=== PATIENT | male | born 1955 | race Caucasian/White ===

== ENCOUNTER 2017-08-24 17:09 | Inpatient (IN) | payer OTHER ==
[~2017-08-24] VITALS: Ht 154.9 cm; Wt 65.8 kg
[~2017-08-24 17:09] MED LIST: AMLO-511 PO; LEVO100 PO; LOSA50TA37 PO; METO50 PO
[2017-08-24 17:30] LABS: BASOPHILS # (AUTO) 0.08 K/uL (0.00-0.20); EOSINOPHILS # (AUTO) 0.02 K/uL (0.00-0.70); EOSINOPHILS % (AUTO) 0.29 % (1.0-6.0); HEMATOCRIT 47.1 % (41-53); HEMOGLOBIN 16.1 g/dL (13.5-17.5); LYMPHOCYTES # (AUTO) 3.4 K/uL (1.0-4.8); LYMPHOCYTES % (AUTO) 42.5 % (22.0-44.0); MEAN CORPUSCULAR HEMOGLOBIN 33.9 pg (26.0-34.0); MEAN CORPUSCULAR HGB CONC 34.1 G/dL (31.0-37.0); MEAN CORPUSCULAR VOLUME 100 fL (80-100); MONOCYTES # (AUTO) 0.7 K/uL (0.1-1.0); MONOCYTES % (AUTO) 8.5 % (2.0-9.0); NEUTROPHILS # (AUTO) 3.9 K/uL (1.8-7.7); NEUTROPHILS % (AUTO) 47.7 % (40.0-70.0); PLATELET COUNT (AUTO) 102 K/uL (150-450); RED BLOOD CELL COUNT(AUTO) 4.74 MIL/uL (4.50-5.90); RED CELL DISTRIBUTION WIDTH 14.4 % (11.5-14.5)
[2017-08-24 17:45] LABS: ALBUMIN 3.2 g/dL (3.4-5.0); BILIRUBIN,TOTAL 1.2 mg/dL (0.1-1.0); CALCIUM, TOTAL 8.1 mg/dL (8.8-10.5); CREATININE 1.26 mg/dL (0.60-1.30); POTASSIUM 3.4 mmol/L (3.5-5.1); TOTAL PROTEIN, SERUM 7.7 g/dL (6.4-8.2)
[2017-08-24] MEDS ORDERED: SODIUM CHLORIDE 0.9% 1,000 ML IV ONE ×2 (18:00→19:00)
[2017-08-24] MEDS ORDERED: ZOLPIDEM TARTRATE 10 MG TABLET PO PRN (18:00)
[2017-08-24] MEDS ORDERED: HALOPERIDOL 5 MG TABLET PO PRN (18:00)
[2017-08-24] MEDS ORDERED: LORazepam 2 MG TABLET PO PRN ×2 (18:00→18:15)
[2017-08-24] MEDS ORDERED: METOPROLOL TARTRATE 50 MG TABLET PO ONE (18:00)
[2017-08-24] MEDS ORDERED: CYANOCOBALAMIN 1,000 MCG/ML VIAL IM ONE (18:15)
[2017-08-24 18:20] LABS: THYROID STIMULATING HORMONE 6.99 uIU/mL (0.36-3.74)
[2017-08-24 19:53] LABS: AMPHET/METH SCREEN,URINE NEGATIVE (NEGATIVE); BARBITURATE SCREEN, URINE NEGATIVE (NEGATIVE); BENZODIAZEPINES SCREEN,URINE NEGATIVE (NEGATIVE); CANNABINOID SCREEN,URINE NEGATIVE (NEGATIVE); COCAINE SCREEN,URINE NEGATIVE (NEGATIVE); METHADONE SCREEN, URINE NEGATIVE (NEGATIVE); OPIATE SCREEN,URINE NEGATIVE (NEGATIVE)
[2017-08-24 19:55] LABS: PHENCYCLIDINE SCREEN,URINE NEGATIVE (NEGATIVE)
[2017-08-24 20:19] LABS: GLUCOSE,POINT OF CARE 296 MG/DL (70-110)
[2017-08-24] MEDS: THIAMINE HCL 100 MG TABLET PO SCH (20:30)
[2017-08-24] MEDS ORDERED: INSULIN ASPART 100 UNITS/ML SQ ONE (20:30)
[2017-08-24] MEDS ORDERED: MetFORMIN HCL 500 MG TABLET PO ONE (20:30)
[2017-08-24 23:59] LABS: GLUCOSE,POINT OF CARE 286 MG/DL (70-110)
[2017-08-25] MEDS ORDERED: POTASSIUM CHLORIDE 20 MEQ ER TABLET PO ONE (00:30)
[2017-08-25 00:45] VITALS: BP 152/107
[2017-08-25 01:45] VITALS: BP 125/80
[2017-08-25 02:45] VITALS: BP 126/79
[2017-08-25 03:45] VITALS: BP 124/81
[2017-08-25 04:45] VITALS: BP 148/101
[2017-08-25 06:06] LABS: GLUCOMETER DEV NAME(LOC) 3EI B; GLUCOSE,POINT OF CARE 249 MG/DL (70-110)
[2017-08-25 06:45] LABS: CHOL/HDL RATIO 3.5 (4.2-7.3); CHOLESTEROL 163 mg/dL (131-200); HDL CHOLESTEROL 46 mg/dL (40-60); TRIGLYCERIDES 567 mg/dL (15-150)
[2017-08-25] MEDS ORDERED: LORazepam 2 MG TABLET PO PRN (07:00)
[2017-08-25] MEDS ORDERED: FOLIC ACID 1 MG TABLET PO SCH (09:00)
[2017-08-25] MEDS: LORazepam 2 MG TABLET PO SCH ×2 (09:00→13:00)
[2017-08-25] MEDS ORDERED: MULTIVITAMINS WITH MINERALS, THERAPEUTIC TABLET PO SCH (09:00)
[2017-08-25] MEDS: THIAMINE HCL 100 MG TABLET PO SCH (10:21)
[2017-08-25 13:56] VITALS: BP 141/95
[2017-08-25] MEDS ORDERED: DEXTROSE 50%-WATER 25 GM/50 ML SYRINGE IVP PRN (14:15)
[2017-08-25] MEDS ORDERED: INSULIN ASPART 100 UNITS/ML SQ PRN (14:15)
[2017-08-27] MEDS ORDERED: LORazepam 1 MG TABLET PO PRN (07:00)
[2017-08-27] MEDS ORDERED: LORazepam 1 MG TABLET PO SCH (09:00)
[2017-08-28] MEDS ORDERED: LORazepam 1 MG TABLET PO PRN (07:00)
== END 2017-08-25 17:15 | disposition home or self-care (01) | DRG 881 ==
LOC: EMS 17:11 → 3EI 08-25 00:48
PROVIDERS: ADMIT Psychiatry & Neurology Psychiatry; ATTEND Psychiatry & Neurology Psychiatry
DX: F32.9 Major depressive disorder, single episode, unspecified (principal); R45.851 Suicidal ideations; E11.9 Type 2 diabetes mellitus without complications; E03.9 Hypothyroidism, unspecified; F10.129 Alcohol abuse with intoxication, unspecified; I10 Essential (primary) hypertension; F17.210 Nicotine dependence, cigarettes, uncomplicated; E78.5 Hyperlipidemia, unspecified
CPT/HCPCS: 82948; 82962; 83036; 84443; 93005; 96360; 96361; 96372; 99291; G0480; J3420; J7030

== ENCOUNTER 2025-06-07 11:30 | Inpatient (IN) | payer MEDICARE ==
[~2025-06-07] VITALS: Ht 160 cm; Wt 58.6 kg
[~2025-06-07 11:30] MED LIST changes: -AMLO-511 PO; -LEVO100 PO; -LOSA50TA37 PO; +METF-1211 PO; -METO50 PO; +SIMV5TAB58 PO; +TELM40TA8 PO
[2025-06-07 12:21] LABS: GLUCOMETER DEV NAME(LOC) ER.7; GLUCOSE,POINT OF CARE 259 MG/DL (70-110)
[2025-06-07 12:30] LABS: RED BLOOD CELL COUNT(AUTO) 3.61 MIL/uL (4.50-5.90); RED CELL DISTRIBUTION WIDTH 15.9 % (11.5-14.5); WHITE BLOOD COUNT (AUTO) 5.1 K/uL (4.5-11.0)
[2025-06-07 12:33] LABS: CALCIUM, TOTAL 8.8 mg/dL (8.8-10.5); CREATININE 1.16 mg/dL (0.60-1.30); GLOMERULAR FILTR. RATE CALC > 60 mL/min (>60); GLUCOSE,RANDOM 251 mg/dL (70-110); SODIUM SERUM 126 mmol/L (136-145); UREA NITROGEN, BLOOD 10 mg/dL (7-18)
[2025-06-07 12:39] LABS: ASPARTATE AMINOTRANSFERASE 352 U/L (15-37); TOTAL PROTEIN, SERUM 7.1 g/dL (6.4-8.2)
[2025-06-07 12:41] LABS: BAND NEUTROPHILS % (MANUAL) 0 % (0-5)
[2025-06-07 12:44] LABS: ALCOHOL, BLOOD (SERUM) < 3 mg/dL (0-10)
[2025-06-07 13:19] LABS: LYMPHOCYTES % (MANUAL) 30 % (22-44); MONOCYTES % (MANUAL) 6 % (2-9); SEGMENTED NEUTROPHILS % 64 % (40-70)
[2025-06-07 13:23] LABS: RBC MORPHOLOGY COMMENT ABNORMAL R
[2025-06-07 13:24] LABS: PLATELET COUNT (AUTO) 108 K/uL (150-450)
[2025-06-07] MEDS: MAGNESIUM SULFATE 2 GM, MVI, ADULT NO.1 WITH VIT K 10 ML, THIAMINE 100 MG, FOLIC ACID 1... IV ONE (13:33)
[2025-06-07 13:42] LABS: TROPONIN I-HIGH SENSITIVITY 9 ng/L (<76)
[2025-06-07 13:43] LABS: LACTIC ACID 1.1 mmol/L (0.4-2.0)
[2025-06-07 13:54] LABS: ALCOHOL, BLOOD (SERUM) < 3 mg/dL (0-10)
[2025-06-07 14:05] LABS: APPEARANCE,URINE HAZY (CLEAR); GLUCOSE, URINE (UA) 150-200 mg/dL (NEGATIVE); LEUKOCYTE ESTERASE ,URINE NEGATIVE (NEGATIVE); NITRATE,URINE NEGATIVE (NEGATIVE); OCCULT BLOOD,URINE NEGATIVE (NEGATIVE); SPECIFIC GRAVITIY, URINE 1.027 (1.003-1.030)
[2025-06-07 14:20] LABS: SQUAMOUS EPITHELIAL CELL,UR Few /LPF (None Seen)
[2025-06-07 14:21] LABS: PH,URINE DRUG SCREEN 7.0 (5.0-8.0)
[2025-06-07 14:30] LABS: ALCOHOL, URINE DRUG SCREEN NEGATIVE (NEGATIVE); AMPHET/METH SCREEN,URINE NEGATIVE (NEGATIVE); BARBITURATE SCREEN, URINE NEGATIVE (NEGATIVE); CANNABINOID SCREEN,URINE NEGATIVE (NEGATIVE); COCAINE SCREEN,URINE NEGATIVE (NEGATIVE); METHADONE SCREEN, URINE NEGATIVE (NEGATIVE)
[2025-06-07] MEDS ORDERED: MAGNESIUM SULFATE 2 GM/WATER 50 ML IV PRN (16:30)
[2025-06-07] MEDS ORDERED: ACETAMINOPHEN 325 MG TABLET PO PRN (16:30)
[2025-06-07] MEDS ORDERED: MAGNESIUM OXIDE 400 MG TABLET PO PRN (16:30)
[2025-06-07] MEDS ORDERED: BISACODYL 10 MG RECTAL RECTAL SUPPOSITORY PR PRN (16:30)
[2025-06-07] MEDS ORDERED: MORPHINE SULFATE 2 MG/ML SYRINGE IVP PRN (16:30)
[2025-06-07] MEDS ORDERED: HYDROCODONE/ACETAMINOPHEN 5-325 MG TABLET PO PRN (16:30)
[2025-06-07] MEDS ORDERED: ZOLPIDEM TARTRATE 5 MG TABLET PO PRN (16:30)
[2025-06-07] MEDS ORDERED: ONDANSETRON HCL 4 MG/2 ML VIAL IVP PRN (16:30)
[2025-06-07] MEDS ORDERED: MAGNESIUM SULFATE 4 GM/WATER 100 ML IV PRN (16:30)
[2025-06-07] MEDS ORDERED: MAGNESIUM HYDROXIDE SUSPENSION 30 ML UDCUP PO PRN (16:30)
[2025-06-07 19:23] VITALS: BP 104/66; PULSE 109; RESP 19; TEMP 98.1; O2SAT 97
[2025-06-07] MEDS: DOCUSATE SODIUM 100 MG CAPSULE PO SCH (19:59)
[2025-06-07] MEDS: RIFAXIMIN 550 MG TABLET PO SCH (20:06)
[2025-06-07] MEDS ORDERED: METO25TA6 PO (20:16)
[2025-06-07] MEDS ORDERED: AMLO5TAB66 PO (20:16)
[2025-06-07] MEDS: HEPARIN SODIUM,PORCINE 5,000 UNITS/ML VIAL SQ SCH (23:16)
[2025-06-07 23:33] VITALS: BP 111/72; PULSE 78; RESP 18; TEMP 98.2; O2SAT 98
[2025-06-08 04:39] VITALS: BP 103/74; PULSE 82; RESP 18; TEMP 98.2; O2SAT 99
[2025-06-08 06:17] LABS: CALCIUM, TOTAL 8.4 mg/dL (8.8-10.5); CREATININE 0.74 mg/dL (0.60-1.30); GLOMERULAR FILTR. RATE CALC > 60 mL/min (>60); GLUCOSE,RANDOM 145 mg/dL (70-110); SODIUM SERUM 133 mmol/L (136-145); UREA NITROGEN, BLOOD 6 mg/dL (7-18)
[2025-06-08 06:49] LABS: PLATELET COUNT (AUTO) 87 K/uL (150-450); RED BLOOD CELL COUNT(AUTO) 3.10 MIL/uL (4.50-5.90); RED CELL DISTRIBUTION WIDTH 15.9 % (11.5-14.5); WHITE BLOOD COUNT (AUTO) 5.1 K/uL (4.5-11.0)
[2025-06-08 07:28] VITALS: BP 111/66; PULSE 88; RESP 18; TEMP 98; O2SAT 98
[2025-06-08] MEDS: SIMVASTATIN 10 MG TABLET PO SCH (07:56)
[2025-06-08] MEDS: TELMISARTAN 40 MG TABLET PO SCH (07:56)
[2025-06-08 08:03] LABS: BAND NEUTROPHILS % (MANUAL) 0 % (0-5)
[2025-06-08 08:04] LABS: LYMPHOCYTES % (MANUAL) 33 % (22-44); MONOCYTES % (MANUAL) 6 % (2-9); SEGMENTED NEUTROPHILS % 61 % (40-70)
[2025-06-08 08:05] LABS: RBC MORPHOLOGY COMMENT ABNORMAL RBC MORPH
[2025-06-08] MEDS: PANTOPRAZOLE SODIUM 40 MG DR TABLET PO SCH (08:12)
[2025-06-08] MEDS ORDERED: POTASSIUM CHL 10 MEQ/WATER 50 ML IV PRN (10:15)
[2025-06-08 11:23] VITALS: BP 102/76; PULSE 83; RESP 18; TEMP 98.4; O2SAT 99
[2025-06-08] MEDS: POTASSIUM CHLORIDE 20 MEQ ER TABLET PO PRN (14:45)
[2025-06-08 15:11] VITALS: BP 113/73; PULSE 80; RESP 19; TEMP 98.2; O2SAT 98
[2025-06-08] MEDS: PrednisoLONE SOD PHOSPHATE 15 MG/5 ML SOLUTION UDCUP PO SCH (18:07)
[2025-06-08 19:24] VITALS: BP 132/78; PULSE 83; RESP 18; TEMP 98.4; O2SAT 97
[2025-06-08 23:03] VITALS: BP 111/76; PULSE 90; RESP 18; TEMP 98.2; O2SAT 97
[2025-06-09 03:03] VITALS: BP 112/71; PULSE 81; RESP 18; TEMP 97.9; O2SAT 98
[2025-06-09 06:09] LABS: PLATELET COUNT (AUTO) 98 K/uL (150-450); RED BLOOD CELL COUNT(AUTO) 3.28 MIL/uL (4.50-5.90); RED CELL DISTRIBUTION WIDTH 15.9 % (11.5-14.5); WHITE BLOOD COUNT (AUTO) 5.6 K/uL (4.5-11.0)
[2025-06-09 06:26] LABS: ASPARTATE AMINOTRANSFERASE 291 U/L (15-37); CALCIUM, TOTAL 8.9 mg/dL (8.8-10.5); CREATININE 0.86 mg/dL (0.60-1.30); GLOMERULAR FILTR. RATE CALC > 60 mL/min (>60); GLUCOSE,RANDOM 238 mg/dL (70-110); SODIUM SERUM 128 mmol/L (136-145); TOTAL PROTEIN, SERUM 6.3 g/dL (6.4-8.2); UREA NITROGEN, BLOOD 6 mg/dL (7-18)
[2025-06-09 08:26] VITALS: BP 125/82; PULSE 110; RESP 19; TEMP 98.2; O2SAT 97
[2025-06-09 08:27] LABS: BAND NEUTROPHILS % (MANUAL) 1 % (0-5); LYMPHOCYTES % (MANUAL) 25 % (22-44); PLATELET MORPHOLOGY COMMENT GIANT PLTS PRESENT; RBC MORPHOLOGY COMMENT ABNORMAL RBC MORPH; SEGMENTED NEUTROPHILS % 74 % (40-70)
[2025-06-09] MEDS: MULTIVITAMINS, THERAPEUTIC TABLET PO SCH (08:40)
[2025-06-09 11:24] VITALS: BP 116/71; PULSE 85; RESP 18; TEMP 97.7; O2SAT 96
[2025-06-09] MEDS ORDERED: DEXTROSE 50%-WATER 25 GM/50 ML SYRINGE IVP PRN (11:30)
[2025-06-09] MEDS: INSULIN LISPRO 100 UNITS/ML SQ PRN (12:11)
[2025-06-09 12:56] LABS: GLUCOMETER DEV NAME(LOC) 5N.2C; GLUCOSE,POINT OF CARE 308 MG/DL (70-110)
[2025-06-09 16:22] VITALS: BP 126/79; PULSE 90; RESP 19; TEMP 98; O2SAT 99
[2025-06-09 17:55] LABS: GLUCOMETER DEV NAME(LOC) 5N.2C; GLUCOSE,POINT OF CARE 360 MG/DL (70-110)
[2025-06-09 19:42] VITALS: BP 113/68; PULSE 96; RESP 19; TEMP 98.1; O2SAT 98
[2025-06-09 21:30] LABS: GLUCOMETER DEV NAME(LOC) 5N.1D; GLUCOSE,POINT OF CARE 285 MG/DL (70-110)
[2025-06-09 23:10] VITALS: BP 115/76; PULSE 94; RESP 18; TEMP 97.9; O2SAT 96
[2025-06-10 03:33] VITALS: BP 108/72; PULSE 80; RESP 18; TEMP 97.7; O2SAT 98
[2025-06-10 06:19] LABS: PLATELET COUNT (AUTO) 105 K/uL (150-450); RED BLOOD CELL COUNT(AUTO) 3.02 MIL/uL (4.50-5.90); RED CELL DISTRIBUTION WIDTH 16.6 % (11.5-14.5); WHITE BLOOD COUNT (AUTO) 6.9 K/uL (4.5-11.0)
[2025-06-10 06:23] LABS: ASPARTATE AMINOTRANSFERASE 233 U/L (15-37); CALCIUM, TOTAL 8.5 mg/dL (8.8-10.5); CREATININE 0.80 mg/dL (0.60-1.30); GLOMERULAR FILTR. RATE CALC > 60 mL/min (>60); GLUCOSE,RANDOM 182 mg/dL (70-110); SODIUM SERUM 129 mmol/L (136-145); TOTAL PROTEIN, SERUM 5.9 g/dL (6.4-8.2); UREA NITROGEN, BLOOD 8 mg/dL (7-18)
[2025-06-10 07:06] LABS: BAND NEUTROPHILS % (MANUAL) 1 % (0-5); LYMPHOCYTES % (MANUAL) 30 % (22-44); MONOCYTES % (MANUAL) 3 % (2-9); RBC MORPHOLOGY COMMENT ABNORMAL R; SEGMENTED NEUTROPHILS % 66 % (40-70)
[2025-06-10 07:20] LABS: GLUCOMETER DEV NAME(LOC) 5N.1D; GLUCOSE,POINT OF CARE 175 MG/DL (70-110)
[2025-06-10 08:00] VITALS: BP 108/71; PULSE 87; RESP 17; TEMP 98.2; O2SAT 99
[2025-06-10] MEDS: SODIUM CHLORIDE 1 GM TABLET PO SCH (11:33)
[2025-06-10 11:45] VITALS: BP 131/83; PULSE 88; RESP 17; TEMP 98.2; O2SAT 97
[2025-06-10 14:46] LABS: GLUCOMETER DEV NAME(LOC) 5N.2C; GLUCOSE,POINT OF CARE 348 MG/DL (70-110)
[2025-06-10 16:07] VITALS: BP 118/82; PULSE 85; RESP 17; TEMP 98.2; O2SAT 97
[2025-06-10 20:34] VITALS: BP 143/84; PULSE 55; RESP 17; TEMP 97.9; O2SAT 95
[2025-06-10 21:31] LABS: GLUCOMETER DEV NAME(LOC) 5S.1D; GLUCOSE,POINT OF CARE 243 MG/DL (70-110)
[2025-06-10 21:31] LABS: GLUCOMETER DEV NAME(LOC) 5N.2C; GLUCOSE,POINT OF CARE 338 MG/DL (70-110)
[2025-06-11 00:05] VITALS: BP 122/79; PULSE 95; RESP 17; TEMP 98.1; O2SAT 96
[2025-06-11 04:07] VITALS: BP 108/74; PULSE 86; RESP 15; TEMP 97.9; O2SAT 99
[2025-06-11 06:40] LABS: ASPARTATE AMINOTRANSFERASE 194 U/L (15-37); CALCIUM, TOTAL 9.0 mg/dL (8.8-10.5); CREATININE 0.81 mg/dL (0.60-1.30); GLOMERULAR FILTR. RATE CALC > 60 mL/min (>60); GLUCOSE,RANDOM 155 mg/dL (70-110); SODIUM SERUM 130 mmol/L (136-145); TOTAL PROTEIN, SERUM 6.1 g/dL (6.4-8.2); UREA NITROGEN, BLOOD 12 mg/dL (7-18)
[2025-06-11 08:00] VITALS: BP 125/77; PULSE 91; RESP 18; TEMP 98.1; O2SAT 100
[2025-06-11 08:43] LABS: PLATELET COUNT (AUTO) 134 K/uL (150-450); RED BLOOD CELL COUNT(AUTO) 3.52 MIL/uL (4.50-5.90); RED CELL DISTRIBUTION WIDTH 17.8 % (11.5-14.5); WHITE BLOOD COUNT (AUTO) 7.2 K/uL (4.5-11.0)
[2025-06-11 08:57] LABS: PLATELET MORPHOLOGY COMMENT LARGE PLTS PRESENT
[2025-06-11 08:58] LABS: RBC MORPHOLOGY COMMENT ABNORMAL RBC MORPH
[2025-06-11 08:59] LABS: BAND NEUTROPHILS % (MANUAL) 0 % (0-5)
[2025-06-11 09:02] LABS: EOSINOPHILS % (MANUAL) 1 % (1-6); LYMPHOCYTES % (MANUAL) 28 % (22-44); MONOCYTES % (MANUAL) 5 % (2-9); SEGMENTED NEUTROPHILS % 66 % (40-70)
[2025-06-11] MEDS ORDERED: METF-1211 PO (10:24)
[2025-06-11] MEDS ORDERED: RIFAX550 PO (10:24)
[2025-06-11] MEDS ORDERED: SODI100067 PO (10:25)
[2025-06-11 11:51] LABS: GLUCOMETER DEV NAME(LOC) 5N.2C; GLUCOSE,POINT OF CARE 171 MG/DL (70-110)
[2025-06-11 12:08] VITALS: BP 113/79; PULSE 99; RESP 16; TEMP 97.7; O2SAT 99
[2025-06-11 21:46] LABS: GLUCOMETER DEV NAME(LOC) 5N.2C; GLUCOSE,POINT OF CARE 263 MG/DL (70-110)
== END 2025-06-11 13:35 | disposition home or self-care (01) | DRG 433 ==
LOC: EMS 11:38 → EDH 15:00 → 5S 18:24
PROVIDERS: ADMIT Internal Medicine; ATTEND Internal Medicine
DX: K70.10 Alcoholic hepatitis without ascites (principal); E44.0 Moderate protein-calorie malnutrition; E87.1 Hypo-osmolality and hyponatremia; E83.42 Hypomagnesemia; E11.9 Type 2 diabetes mellitus without complications; K72.10 Chronic hepatic failure without coma; K76.82 Hepatic encephalopathy; D69.6 Thrombocytopenia, unspecified; E78.00 Pure hypercholesterolemia, unspecified; F10.20 Alcohol dependence, uncomplicated; I10 Essential (primary) hypertension; K70.30 Alcoholic cirrhosis of liver without ascites; Z68.22 Body mass index [BMI] 22.0-22.9, adult
CPT/HCPCS: 71045; 76700; 80048; 80053; 80076; 80307; 81001; 82040; 82140; 82962; 83605; 83690; 83735; 83880; 84484; 85025; 85610; 85730; 87040; 93005; 96365; 96366; 99285; G0480; J1644; J3411; J3475; J3490; J7030; J7510; 36415-L1; 36415-TC